=== PATIENT | male | born 1965 | race Caucasian/White ===

== ENCOUNTER 2017-11-25 11:10 | Day surgery (SDC) | payer OTHER ==
[2017-11-22 09:44] LABS: HEMATOCRIT 43.7 % (37.9-51.0); HEMOGLOBIN 15.1 g/dL (13.5-17.0); MEAN CORPUSCULAR HEMOGLOBIN 30.5 pg (27.0-33.4); MEAN CORPUSCULAR HGB CONC 34.6 g/dL (32.0-36.0); MEAN CORPUSCULAR VOLUME 88 fl (80-97); PLATELET COUNT 253 10^3/uL (150-450); RED BLOOD COUNT 4.96 10^6/uL (4.35-5.55); RED CELL DISTRIBUTION WIDTH 13.6 % (11.5-14.0); WHITE BLOOD COUNT 10.8 10^3/uL (4.0-10.5)
[2017-11-22 09:47] LABS: APPEARANCE,URINE CLEAR; BILIRUBIN,URINE NEGATIVE (NEGATIVE); COLOR,URINE YELLOW; GLUCOSE, URINE NEGATIVE (NEGATIVE); KETONES,URINE NEGATIVE (NEGATIVE); LEUKOCYTE ESTERASE,URINE NEGATIVE (NEGATIVE); NITRITE,URINE NEGATIVE (NEGATIVE); PROTEIN,URINE NEGATIVE (NEGATIVE); URINE SPECIFIC GRAVITY 1.017; UROBILINOGEN,URINE NEGATIVE mg/dL (<2.0)
--- NOTE | 2017-11-22 10:15 | RADIOLOGY REPORT (SQ) ---
EXAM DESCRIPTION: CHEST PA/LATERAL COMPLETED DATE/TIME: 11/22/2017 9:36 am REASON FOR STUDY: PRE OP COMPARISON: None. EXAM PARAMETERS: NUMBER OF VIEWS: two views TECHNIQUE: Digital Frontal and Lateral radiographic views of the chest acquired. RADIATION DOSE: NA LIMITATIONS: none FINDINGS: LUNGS AND PLEURA: No opacities, masses or pneumothorax. No pleural effusion. MEDIASTINUM AND HILAR STRUCTURES: No masses or contour abnormalities. HEART AND VASCULAR STRUCTURES: Heart normal size. No evidence for failure. BONES: No acute findings. HARDWARE: None in the chest. OTHER: No other significant finding. IMPRESSION: NO SIGNIFICANT RADIOGRAPHIC FINDING IN THE CHEST. TECHNICAL DOCUMENTATION: JOB ID: [id number] [employer]- All Rights Reserved Reading location - IP/workstation name: [email or web address]
[2017-11-22 10:21] LABS: ANION GAP 14 (5-19); BLOOD UREA NITROGEN 22 mg/dL (7-20); CALCIUM 9.9 mg/dL (8.4-10.2); CARBON DIOXIDE 25 mmol/L (22-30); CHLORIDE 101 mmol/L (98-107); GLUCOSE 99 mg/dL (75-110); POTASSIUM 4.6 mmol/L (3.6-5.0); SODIUM 140.1 mmol/L (137-145)
--- NOTE | 2017-11-22 13:03 | EKG REPORT ---
SEVERITY:- ABNORMAL ECG - SINUS RHYTHM NONSPECIFIC T ABNORMALITIES, INFERIOR LEADS : Confirmed by: Daren Shah MD 22-Nov-2017 13:02:11
[~2017-11-25 11:10] MED LIST: CEFAZOLIN SODIUM 2 GM in DEXTROSE 5%-WATER 100 ML IV PRN; DEXAMETHASONE SOD PHOSPHATE INJ 4 MG/1 ML VIAL ONE; GLYCOPYRROLATE INJ 0.4 MG/2 ML VIAL ONE; LACTATED RINGERS 1000 ML IV PRN; LIDOCAINE 0.5% INJ-PF (5 MG/ML) 50 ML SDV SUBCUT PRN; LIDOCAINE 2% INJ-PF (20 MG/ML) 2 ML AMPUL ONE; NEOSTIGMINE METHYLSULFATE 10 MG/10 ML VIAL ONE; ONDANSETRON HCL INJ/PF 4 MG/2 ML SDV ONE; PHENYLEPHRINE HCL INJ/PF 10 MG/1 ML SDV ONE; ROCURONIUM BROMIDE INJ 50 MG/5 ML VIAL IV ONE; SUCCINYLCHOLINE CHLORIDE INJ 200 MG/10 ML VIAL ONE
[2017-11-25] MEDS ORDERED: BUPIVACAINE HCL 0.5 % INJ/PF 30 ML SDV ONE (12:28)
[2017-11-25] MEDS ORDERED: EPINEPHRINE INJ/PF 1 MG/1 ML AMPULE ONE ×2 (12:28→13:17)
[2017-11-25] MEDS ORDERED: FENTANYL CITRATE INJ/PF 250 MCG/5 ML AMPULE ONE (13:07)
[2017-11-25] MEDS ORDERED: PROPOFOL INJ 200 MG/20 ML VIAL IV ONE (13:07)
[2017-11-25] MEDS ORDERED: MIDAZOLAM 2 MG/2 ML INJ ONE (13:07)
[2017-11-25] MEDS ORDERED: ACETAMINOPHEN 100 ML IV ONE (13:07)
[2017-11-25] MEDS ORDERED: MORPHINE SULFATE 10 MG/ML INJ ONE (13:08)
--- NOTE | 2017-11-25 13:43 | EKG REPORT ---
SEVERITY:- BORDERLINE ECG - SINUS RHYTHM BORDERLINE T ABNORMALITIES, INFERIOR LEADS : Confirmed by: Daren Shah MD 25-Nov-2017 13:41:40
[2017-11-25] MEDS ORDERED: DIPHENHYDRAMINE HCL 50 MG/ML VIAL IV PRN (14:50)
[2017-11-25] MEDS ORDERED: MEPERIDINE HCL/PF INJ 25 MG/1 ML DISP.SYRIN IV PRN (14:50)
[2017-11-25] MEDS ORDERED: FENTANYL CITRATE INJ/PF 100 MCG/2 ML AMPUL IV PRN (14:50)
[2017-11-25] MEDS ORDERED: MORPHINE SULFATE 10 MG/ML INJ IV PRN (14:50)
[2017-11-25] MEDS ORDERED: PROMETHAZINE HCL INJ 25 MG/1 ML VIAL IV PRN (14:50)
--- NOTE | 2017-11-25 15:10 | Operative Report ---
Operative Report DATE OF SURGERY: 11/25/17 PREOPERATIVE DIAGNOSIS: Right shoulder rotator cuff tear and posterior labral tear involving the biceps anchor POSTOPERATIVE DIAGNOSIS: Intact rotator cuff with a type II SLAP tear OPERATION: Right shoulder arthroscopy debridement, decompression and subpectoralis biceps tenodesis SURGEON: SHAWNA GONZALEZ ANESTHESIA: GA TISSUE REMOVED OR ALTERED: Partial portion of the long head of the biceps removed COMPLICATIONS: None ESTIMATED BLOOD LOSS: Less than 20 mL INTRAOPERATIVE FINDINGS: As above PROCEDURE: Patient received preoperative antibiotics. Patient then was taken to the operating room where she was induced and intubated in supine position. Patient then was secured in the beachchair position where the right shoulder was prepped and draped in a normal surgical fashion. Timeout done identifying the right shoulder as the correct site. Spinal needle was used to insert into the glenohumeral joint and I proceeded to distend the capsule with sterile saline solution. 11 blade was used to establish my posterior portal and I introduced the cannula into the glenohumeral joint. Once I got return of fluid I confirm proper placement so I inserted the camera. Under direct visualization I placed a spinal needle marked my anterior portal and used an 11 blade to establish a. I placed a purple cannula and then through the cannula was able to probe and proceed with my diagnostic scope which show pristine glenohumeral joint cartilage and intact labrum anterior, inferior and posterior. I turned my attention to the biceps anchor and the patient had a type II SLAP tear. To my attention to the footprint of the rotator cuff which showed to be intact with no partial tearing despite what the MRI read showed. At this point through the anterior portal I use arthroscopic scissors to do a tenotomy of the long head of the biceps at the attachment of the glenoid superiorly. I debrided off the edge of the labrum with the radiofrequency ablator. I then redirected the camera to the subacromial space and did a lateral portal and which I did a formal bursectomy and debridement. The rotator cuff was visualized on the bursal side and showed to have no bursal sided partial tearing either. At this point I proceeded then to remove fluid from the shoulder joint and removed the instruments. A 1 inch incision was done just medial to the axillary fold dissection was done with Metzenbaum scissors and hemostasis was obtained with the Bovie. Able to then cut the fascia overlying the biceps and then hooked the long head of biceps with a 90 clamp. Was able then to use a fiber loop and suture 2 cm from the muscular tendinous junction and cut the remaining tendon. I used 2 Homans to reflect tissue on the side of the humerus. I used a 4 mm spade tip guidepin then to do my proximal cortex drilling into the intramedullary canal of the humerus. I fed the 2 ends of the fiber wire into the biceps tenodesis button as recommended by the manufacturing company. Pulled out the guidepin and then proceeded to insert the button into the intramedullary canal. I was able to successfully flipped the button and after releasing securing the biceps. I used a free needle the comes in the care and pass one of the FiberWire ends through the biceps one more time to further secure it. Once I since the biceps onto the humeral cortex I then proceeded to go several half hitch knots for added fixation. Instruments were removed and used bulb irrigation to wash the tissue. I proceeded to approximate the tissue with 2-0 Vicryl and close the skin with 3-0 nylon. The 2 of the portal sites were closed with 3-0 nylon as well. I placed Xeroform over the incisions and covered it with 4 x 4 dressing and ABD pads. Secured the dressing with Medipore tape. Patient's arm was placed in the sling and the patient then was placed in supine position extubated and sent to PACU in stable condition.
[2017-11-25] MEDS ORDERED: OXYCODONE-ACETAMINOPHEN 5-325 MG TABLET PO PRN ×2 (15:14)
--- NOTE | 2017-11-25 15:14 | Discharge Summary ---
Discharge Summary (SDC) - Discharge Final Diagnosis: Right shoulder arthroscopic debridement and subpectoralis biceps tenodesis Date of Surgery: 11/25/17 Discharge Date: 11/25/17 Condition: Good Treatment or Instructions: Patient is instructed to follow up in 10-14 days. Patient instructed to remove dressing in 4 days then can shower and apply Band- Aids as needed. Patient to wear sling for comfort but okay to remove for shower and pendulum exercises. Pendulum exercises are instructed to be done 3 times a day ideally with breakfast, lunch, dinners and showers. Patient instructed to call if there is any signs of redness or drainage fevers or chills. Prescriptions: Oxycodone HCl/Acetaminophen [Percocet 5-325 mg Tablet] 1 - 2 tab PO ASDIR PRN # 30 tablet PRN Reason: Referrals: RICHARD WHITLOCK MD [Primary Care Provider] - Discharge Diet: As Tolerated Respiratory Treatments at Home: Deep Breathing/Coughing Discharge Activity: No Driving, No Lifting/Push/Pulling, Slowly Increase Activity, Walk Frequently Home Care Assistance: None Needed Report the Following to Your Physician Immediately: Shortness of Breath, Vomiting, Increase in Pain, Fever over 101 Degrees, Unusual Bleeding, Redness, Swelling, Warmth, Increased Soreness, Drainage-Yellow, Drainage-Collier, Drainage- Green, Increased Vaginal Bleed
[2017-11-25 18:16] VITALS: BP 123/77
== END 2017-11-25 18:00 | disposition home or self-care (01) ==
LOC: OROUT 11:10
PROVIDERS: ATTEND Orthopaedic Surgery
DX: M75.112 Incomplete rotator cuff tear or rupture of left shoulder, not specified as traumatic (principal); S43.431A Superior glenoid labrum lesion of right shoulder, initial encounter; X58.XXXA Exposure to other specified factors, initial encounter; K21.9 Gastro-esophageal reflux disease without esophagitis; Z79.899 Other long term (current) drug therapy; I10 Essential (primary) hypertension
CPT/HCPCS: 93005 ×2; 36415; 85027; 80048; 81001; 71046; 93010 ×2; 29822; 24340; C1713; J2250; J3490 ×3; J0690; J1100; J0171; J3010; J2270; J2370; J0330; J2405; J2704; J0131; 1630

== ENCOUNTER 2019-08-29 09:54 | Emergency (ER) | payer OTHER ==
[2019-08-29 10:09] VITALS: BP 148/109
--- NOTE | 2019-08-29 10:27 | ER Document Report ---
ED Blood Pressure Problem - General Chief Complaint: High Blood Pressure Stated Complaint: BLOOD PRESSURE ISSUES Time Seen by Provider: 08/29/19 10:16 Primary Care Provider: SARA LUNDBERG MD [Primary Care Provider] - 08/31/19 TRAVEL OUTSIDE OF THE [place] IN LAST 30 DAYS: No - HPI Notes: 54-year-old male to the emergency department with complaints of elevated blood pressure this morning. He has a known history of hypertension and takes lisinopril daily. He did take his lisinopril today. He states that he has not been as good adhering to a low-sodium diet over the weekend. Apparently he had a hog processed and has been eating all the pork byproducts that he can this week at. He states that this morning while at work he had a mild headache and checked his blood pressure and it was 140/90. He states that he decided to drink some water and retake his blood pressure and it was 140/110. He states that he then told his captain about the situation and he was asked to come to the emergency department for further evaluation. He states that he is feeling much better and that his headache has completely resolved. He denies any focal neurological deficits. He states that he is not have any speech problems or gait disturbances. He has an appointment with his primary care physician on . - Related Data Allergies/Adverse Reactions: No Known Allergies Allergy (Verified 08/29/19 10:21) Home Medications: lisinopril. nexium Past Medical History - General Information source: Patient - Social History Smoking Status: Never Smoker Chew tobacco use (# tins/day): Yes Frequency of alcohol use: Heavy Drug Abuse: None Lives with: Spouse/Significant other Family History: Reviewed & Not Pertinent Patient has suicidal ideation: No Patient has homicidal ideation: No - Past Medical History Cardiac Medical History: Reports: Hx Hypertension Denies: Hx Coronary Artery Disease, Hx Heart Attack Pulmonary Medical History: Denies: Hx Asthma, Hx Bronchitis, Hx COPD, Hx Pneumonia Neurological Medical History: Denies: Hx Cerebrovascular Accident, Hx Seizures Musculoskeletal Medical History: Denies Hx Arthritis - Immunizations Hx Diphtheria, Pertussis, Tetanus Vaccination: No Review of Systems - Review of Systems Constitutional: denies: Chills, Fever EENT: No symptoms reported Cardiovascular: denies: Chest pain, Palpitations, Heart racing, Syncope, Dizziness, Lightheaded Respiratory: denies: Cough, Short of breath Gastrointestinal: denies: Abdominal pain, Diarrhea, Nausea, Vomiting Musculoskeletal: No symptoms reported Skin: No symptoms reported Hematologic/Lymphatic: No symptoms reported Neurological/Psychological: See HPI, Headaches. denies: Weakness, Numbness, Tingling -: Yes All other systems reviewed and negative Physical Exam - Vital signs Vitals: Temp Pulse Resp BP Pulse Ox 98.3 F 81 16 148/109 H 95 08/29/19 10:08 08/29/19 10:08 08/29/19 10:08 08/29/19 10:08 08/29/19 10:08 Interpretation: Hypertensive - General General appearance: Appears well, Alert - HEENT Head: Normocephalic, Atraumatic Eyes: Normal Pupils: PERRL - Respiratory Respiratory status: No respiratory distress Chest status: Nontender Breath sounds: Normal Chest palpation: Normal - Cardiovascular Rhythm: Regular Heart sounds: Normal auscultation Murmur: No - Back Back: Normal, Nontender - Extremities General upper extremity: Normal inspection, Nontender, Normal color, Normal ROM, Normal temperature General lower extremity: Normal inspection, Nontender, Normal color, Normal ROM, Normal temperature, Normal weight bearing - Neurological Neuro grossly intact: Yes Cognition: Normal Orientation: AAOx4 Ne Coma Scale Eye Opening: Spontaneous Barnard Coma Scale Verbal: Oriented Barnard Coma Scale Motor: Obeys Commands Barnard Coma Scale Total: 15 Speech: Normal Cranial nerves: Normal. No: Facial palsy, Forehead sparing, Gaze palsy, Sensory deficit, Tongue deviation Cerebellar coordination: Normal. 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 No: Pronator drift Sensory: Normal - Psychological Associated symptoms: Normal affect, Normal mood - Skin Skin Temperature: Warm Skin Moisture: Dry Skin Color: Normal Course - Re-evaluation Re-evalutation: 08/29/19 10:42 Impression: Hypertension with elevated blood pressure reading. Patient's blood pressure here today is 148/1 100s. He is completely asymptomatic and looks very well. He has a normal neurological exam. We will have him monitor his diet and continue his lisinopril and see his primary care physician in 2 days as scheduled. Patient agrees with the plan. - Vital Signs Vital signs: Temp Pulse Resp BP Pulse Ox 98.3 F 81 16 148/109 H 95 08/29/19 10:08 08/29/19 10:08 08/29/19 10:08 08/29/19 10:08 08/29/19 10:08 Discharge - Discharge Clinical Impression: Elevated blood pressure reading Hypertension Qualifiers: Hypertension type: essential hypertension Qualified Code(s): I10 - Essential (primary) hypertension Condition: Stable Disposition: HOME, SELF-CARE Additional Instructions: Adhere to a low-sodium diet. Follow-up with your physician as scheduled on without fail. Continue continue to take your lisinopril. Continue to monitor your blood pressure. Forms: Elevated Blood Pressure, Return to Work Referrals: SARA LUNDBERG MD [Primary Care Provider] - 08/31/19
== END 2019-08-29 10:51 | disposition home or self-care (01) ==
LOC: ER 09:54
DX: I10 Essential (primary) hypertension (principal); R51 Headache; Z79.899 Other long term (current) drug therapy
CPT/HCPCS: 99284